=== PATIENT | male | born 1985 | race Caucasian/White ===

== ENCOUNTER 2017-06-07 09:20 | Emergency (ER) | payer MEDICAID ==
[~2017-06-07] VITALS: Ht 170.2 cm; Wt 77.1 kg
--- NOTE | 2017-06-07 09:45 | NUR ---
Flu swab collected and sent to lab.
[2017-06-07 11:22] VITALS: BP 112/68
--- NOTE | 2017-06-07 11:22 | NUR ---
Patient discharged to home in stable conditon. Written and verbal after care instructions given. Patient verbalizes understanding of instructions.
== END 2017-06-07 11:23 | disposition home or self-care (01) ==
LOC: ER 09:20
DX: J20.9 Acute bronchitis, unspecified (principal)
CPT/HCPCS: 71045; 87400; A4663

== ENCOUNTER 2017-06-10 18:37 | Inpatient (IN) | payer MEDICAID ==
[~2017-06-10] VITALS: Ht 170.2 cm; Wt 80.7 kg
[2017-06-10] MEDS ORDERED: GUAI120L24 PO (18:53)
[2017-06-10] MEDS ORDERED: AZIT250T13 PO (18:53)
--- NOTE | 2017-06-10 19:10 | NUR ---
PATIENT WAS SEEN AND EXAMINED BY DR CINTRON IN ROOM 03A. FAMILY AT BEDSIDE. PATIENT A & O X4.
[2017-06-10] MEDS ORDERED: IBUPROFEN 600 MG TABLET PO ONE (19:30)
[2017-06-10] MEDS ORDERED: IV NORMAL SALINE 1000 ML BAG IV ONE (19:30)
[2017-06-10] MEDS ORDERED: ALBUTEROL SULFATE 2.5 MG/3 ML NEBU NEB ONE ×2 (19:30→21:15)
--- NOTE | 2017-06-10 19:35 | NUR ---
PATIENT WAS MOVED TO ROOM 04A FOR MONITOR PLACEMENT.
[2017-06-10] MEDS ORDERED: ALBUTEROL SULFATE 2.5 MG/3 ML NEBU ONE ×2 (19:42→21:36)
--- NOTE | 2017-06-10 19:42 | NUR ---
PT IN BED RECEIVING BREATHING TX. VISITOR AT BEDSIDE. PT JUST GOT CHEST XRAY.
--- NOTE | 2017-06-10 19:50 | NUR ---
PATIENT PLACE BACK ON NC O2 AT 2L/MIN.
[2017-06-10 19:53] LABS: BASOPHILS # (AUTO) 0.1 K/uL (0.0-8.0); BASOPHILS % (AUTO) 0.5 % (0.0-2.0); EOSINOPHILS # (AUTO) 1.2 K/uL (0.0-0.7); EOSINOPHILS % (AUTO) 11.6 % (0.0-7.0); HEMATOCRIT 44.7 % (36.7-47.1); HEMOGLOBIN 14.7 g/dL (12.5-16.3); LYMPHOCYTES # (AUTO) 3.1 K/uL (20.0-40.0); MEAN CORPUSCULAR HEMOGLOBIN 25.6 uug (23.8-33.4); MEAN CORPUSCULAR HGB CONC 33 g/dL (32.5-36.3); MEAN CORPUSCULAR VOLUME 77.7 fL (73.0-96.2); MONOCYTES # (AUTO) 0.6 K/uL (2.0-10.0); MONOCYTES % (AUTO) 6.5 % (0.0-11.0); NEUTROPHILS % (AUTO) 50.4 % (38.5-71.5); PLATELET COUNT (AUTO) 282 K/uL (152-348); RED BLOOD CELL COUNT(AUTO) 5.76 MIL/uL (4.06-5.63)
[2017-06-10 19:58] LABS: POTASSIUM 3.8 mmol/L (3.5-5.1)
--- NOTE | 2017-06-10 19:59 | NUR ---
O2 INCREASE TO 3 L/MIN NC.
[2017-06-10 20:04] LABS: BILIRUBIN,DIRECT 0.1 mg/dL (0.0-0.2); BILIRUBIN,TOTAL 0.3 mg/dL (0.2-1.0); TOTAL PROTEIN, SERUM 7.4 g/dL (6.4-8.2)
[2017-06-10] MEDS ORDERED: IBUPROFEN 600 MG TABLET ONE (20:07)
[2017-06-10] MEDS ORDERED: HYDROCODONE BIT/HOMATROPINE 5 ML UDC PO ONE (21:15)
[2017-06-10] MEDS ORDERED: BENZONATATE 100 MG CAPSULE PO ONE (21:15)
[2017-06-10] MEDS ORDERED: BENZONATATE 100 MG CAPSULE ONE (21:53)
[2017-06-10] MEDS ORDERED: HYDROCODONE BIT/HOMATROPINE 5 ML UDC ONE (21:53)
--- NOTE | 2017-06-10 22:12 | NUR ---
PT IN BED. FAMILY AT BEDSIDE. PT IS A&OX4. VSS. PT RECEIVING BREATHING TX. NO SIGNS OF DISTRESS WITNESSED.
[2017-06-10] MEDS ORDERED: CEFTRIAXONE 1 G in IV DEXTROSE 5% 50 ML IV ONE (23:45)
--- NOTE | 2017-06-11 00:30 | NUR ---
MD CINTRON TALKING TO TORI KIRAN ABOUT PT ADMISSION
[2017-06-11] MEDS ORDERED: MAGNESIUM HYDROXIDE 30 ML LIQUID UDC PO PRN (00:45)
[2017-06-11] MEDS ORDERED: ONDANSETRON 4 MG/2 ML VIAL IV PRN (00:45)
[2017-06-11] MEDS ORDERED: CEFTRIAXONE 1 G VIAL ONE (01:01)
--- NOTE | 2017-06-11 02:09 | NUR ---
PT ENDORSED TO [facility], 2ND FLOOR MED SURG/TELE
[2017-06-11] MEDS ORDERED: ALBUTEROL SULFATE 2.5 MG/3 ML NEBU NEB ONE (03:00)
[2017-06-11] MEDS ORDERED: diphenhydrAMINE 50 MG/1 ML VIAL IV ONE (03:00)
[2017-06-11] MEDS ORDERED: ALBUTEROL SULFATE 2.5 MG/3 ML NEBU ONE (03:19)
--- NOTE | 2017-06-11 03:30 | NUR ---
PT RECEIVED FROM ED, VIA WHEELCHAIR. AT BEDSIDE. FRENCH SPEAKING, BUT ABLE TO MAKE NEEDS KNOWN. ORIENTED TO ROOM. A/OX4. V/S STABLE. IN NO ACUTE DISTRESS. 66 SINUS RHYTHM ON THE TELE MONITOR. PT C/O OF HEADACHE 12/08 AT THIS TIME. IV INTACT AND PATENT. PT PLACED ON 3LNC DUE TO C/O OF SOB. HOB ELEVATED. O2 SATURATION SEEN AT 97%. SAFETY MEASURES IMPLEMENTED. CALL LIGHT WITHIN REACH.
--- NOTE | 2017-06-11 03:37 | NUR ---
PT TAKEN TO 2ND FLOOR--#204
[2017-06-11 04:00] VITALS: BP 113/71
[2017-06-11] MEDS: IV NS 1000 ML 1,000 ML IV SCH ×2 (04:00→15:46)
[2017-06-11] MEDS: HYDROCODONE/APAP 5-325MG TABLET PO PRN ×2 (04:00→16:57)
[2017-06-11] MEDS: methylPREDNISolone SOD SUCC 40 MG/ML VIAL IV SCH ×2 (05:35→14:26)
[2017-06-11] MEDS ORDERED: methylPREDNISolone SOD SUCC 40 MG/ML VIAL IV ONE (06:00)
--- NOTE | 2017-06-11 06:30 | NUR ---
[facility]- END OF SHIFT NOTES. PT IN STABLE CONDITION. 70 SINUS RHYTHM ON THE TELE MONITOR. IVF INFUSING. PT C/O OF HEADACHE CEASED. AFEBRILE. CONT ON 3LNC, TOLERATING WELL. HOB REMAINS ELEVATED. ALL NEEDS ATTENDED. SAFETY MAINTAINED. CALL LIGHT WITHIN REACH.
[2017-06-11 06:39] LABS: EOSINOPHILS # (AUTO) 1.1 K/uL (0.0-0.7); MONOCYTES # (AUTO) 0.4 K/uL (2.0-10.0)
[2017-06-11 06:41] LABS: CREATININE 0.9 mg/dL (0.6-1.3); POTASSIUM 3.9 mmol/L (3.5-5.1)
[2017-06-11 06:46] LABS: BASOPHILS % (AUTO) 0.5 % (0.0-2.0); EOSINOPHILS % (AUTO) 15.9 % (0.0-7.0); HEMATOCRIT 41.9 % (36.7-47.1); HEMOGLOBIN 14.4 g/dL (12.5-16.3); LYMPHOCYTES # (AUTO) 2.4 K/uL (20.0-40.0); LYMPHOCYTES % (AUTO) 34.6 % (20.5-51.5); MEAN CORPUSCULAR HGB CONC 35 g/dL (32.5-36.3); MEAN CORPUSCULAR VOLUME 78.2 fL (73.0-96.2); PLATELET COUNT (AUTO) 230 K/uL (152-348); RED BLOOD CELL COUNT(AUTO) 5.36 MIL/uL (4.06-5.63)
[2017-06-11 06:47] LABS: WHITE BLOOD COUNT (AUTO) 6.9 K/uL (3.6-10.2)
[2017-06-11] MEDS: ENOXAPARIN SODIUM 40 MG/0.4 ML DISP.SYRIN SQ SCH (08:21)
[2017-06-11] MEDS ORDERED: ENOXAPARIN SODIUM 40 MG/0.4 ML DISP.SYRIN SQ ONE (09:00)
[2017-06-11 11:22] VITALS: BP 97/64
[2017-06-11 15:32] VITALS: BP 108/65
--- NOTE | 2017-06-11 15:45 | NUR ---
PT REQUESTING BREATHING TREATMENT, SAT 95% ON 2LNC
[2017-06-11] MEDS: ALBUTEROL SULFATE 2.5 MG/ 0.5 ML NEBU NEB PRN ×2 (16:00→23:09)
[2017-06-11] MEDS: IPRATROPIUM BROMIDE 0.5 MG/2.5 ML NEBU NEB PRN ×2 (16:00→23:09)
[2017-06-11] MEDS: IPRATROPIUM BROMIDE 0.5 MG/2.5 ML NEBU NEB SCH (19:21)
[2017-06-11] MEDS: ALBUTEROL SULFATE 1.25 MG/3 ML NEBU NEB SCH (19:21)
--- NOTE | 2017-06-11 19:30 | NUR ---
PT RECEIVED IN BED, AWAKE. FAMILY AT BEDSIDE. A/OX4. ABLE TO MAKE NEEDS KNOWN. V/S STABLE. IN NO ACUTE DISTRESS. PT C/O HEADACHE AT THIS TIME, UNRELIEVED BY NORCO. IVF INFUSING. ON 2L NC, TOLERATING WELL. PT ENCOURAGED TO COUGH AND DEEP BREATH. AFEBRILE. SAFETY MEASURES IMPLEMENTED. CALL LIGHT WITHIN REACH.
--- NOTE | 2017-06-11 19:35 | NUR ---
PT SINUS RHYTHM 78 BPM ON THE TELE MONITOR.
[2017-06-11 20:00] VITALS: BP 105/65
[2017-06-11] MEDS ORDERED: CEFTRIAXONE 1 G in IV DEXTROSE 5% 50 ML IV SCH (20:00)
--- NOTE | 2017-06-11 20:26 | NUR ---
TYLENOL 650MG PO GIVEN FOR TEMP. 103. COOLING MEASURES CONTINUED. Addendum: 06/11/17 at 2256 by LOTUS GREEN RN DISREGARD NOTE, WRONG PT
[2017-06-11] MEDS: CEFTRIAXONE 1 G in IV NORMAL SALINE 50 ML IV SCH (20:47)
[2017-06-11] MEDS: ACETAMINOPHEN 325 MG TABLET PO PRN (20:47)
[2017-06-11] MEDS: methylPREDNISolone SOD SUCC 125 MG/2 ML VIAL IV SCH (21:30)
[2017-06-11] MEDS: ZOLPIDEM 5 MG TABLET PO PRN (21:33)
--- NOTE | 2017-06-11 21:35 | NUR ---
PER GROUP TESTER ORDER, PT ENCOURAGED TO USE INCENTIVE SPIROMETER FOR DEEP BREATHING EXERCISE. PT ALSO ENCOURAGED TO WALK AD KILO. PT C/O DIFFICULTY SLEEPING. GROUP TESTER QIANA AWARE. ZOLPIDEM PROVIDED. WILL CONT TO MONITOR
[2017-06-11] MEDS ORDERED: methylPREDNISolone SOD SUCC 40 MG/ML VIAL IV SCH (22:00)
[2017-06-11] MEDS: ACETYLCYSTEINE 10% 4ML VIAL NEB SCH (23:10)
[2017-06-12 00:07] VITALS: BP 115/54
[2017-06-12 04:00] VITALS: BP 115/67
[2017-06-12] MEDS: methylPREDNISolone SOD SUCC 125 MG/2 ML VIAL IV SCH ×3 (05:52→21:20)
[2017-06-12] MEDS: IV NS 1000 ML 1,000 ML IV SCH ×2 (05:52→19:45)
--- NOTE | 2017-06-12 06:00 | NUR ---
END OF SHIFT NOTES. PT SLEPT WELL THROUGHOUT SHIFT. IN STABLE CONDITION. 69 SINUS RHYTHM ON THE TELE MONITOR. HEADACHE CEASED. IVF INFUSING. CONT ON 2L NC TOLERATING WELL. AFEBRILE. CONT TO ENCOURAGE PT WITH USE OF INCENTIVE SPIROMETER. PT COMPLIANT WITH CARE. ALL NEEDS ATTENDED. SAFETY MAINTAINED. CALL LIGHT WITHIN REACH.
[2017-06-12 06:49] LABS: CREATININE 0.8 mg/dL (0.6-1.3); MAGNESIUM 2.1 mg/dL (1.8-2.4); PHOSPHOROUS 4.2 mg/dL (2.5-4.9); POTASSIUM 4.5 mmol/L (3.5-5.1)
[2017-06-12 06:52] LABS: BASOPHILS % (AUTO) 0.1 % (0.0-2.0); HEMATOCRIT 43.9 % (36.7-47.1); HEMOGLOBIN 14.4 g/dL (12.5-16.3); LYMPHOCYTES # (AUTO) 1.4 K/uL (20.0-40.0); LYMPHOCYTES % (AUTO) 10.7 % (20.5-51.5); MEAN CORPUSCULAR HEMOGLOBIN 25.9 uug (23.8-33.4); MEAN CORPUSCULAR HGB CONC 33 g/dL (32.5-36.3); MEAN CORPUSCULAR VOLUME 79.2 fL (73.0-96.2); MONOCYTES # (AUTO) 0.2 K/uL (2.0-10.0); MONOCYTES % (AUTO) 1.4 % (0.0-11.0); NEUTROPHILS # (AUTO) 11.9 K/uL (1.8-8.9); NEUTROPHILS % (AUTO) 87.8 % (38.5-71.5); PLATELET COUNT (AUTO) 283 K/uL (152-348); RED BLOOD CELL COUNT(AUTO) 5.54 MIL/uL (4.06-5.63); WHITE BLOOD COUNT (AUTO) 13.5 K/uL (3.6-10.2)
[2017-06-12] MEDS: ACETYLCYSTEINE 10% 4ML VIAL NEB SCH ×3 (07:32→19:28)
[2017-06-12] MEDS: ALBUTEROL SULFATE 1.25 MG/3 ML NEBU NEB SCH ×3 (07:32→19:30)
[2017-06-12] MEDS: IPRATROPIUM BROMIDE 0.5 MG/2.5 ML NEBU NEB SCH ×3 (07:33→19:30)
--- NOTE | 2017-06-12 07:45 | NUR ---
PATIENT IS AWAKE ALERT AND ORIENTED DENIES PAIN OR DISCOMFORTS AT THIS TRIME REMAIN ON IVF ORDERED.ON O2 WITH NO SHORTNESS OF BREATH WILL CHECK SATS ON ROOM AIR WITH EXERCISES.NOT IN DISTRESS AT THIS TIME.
[2017-06-12] MEDS: ENOXAPARIN SODIUM 40 MG/0.4 ML DISP.SYRIN SQ SCH (08:34)
[2017-06-12] MEDS: LEVOFLOXACIN 750MG/D5W 750 MG in PREMIXED 1 EACH IV SCH (11:05)
[2017-06-12 11:21] VITALS: BP 121/68
[2017-06-12] MEDS ORDERED: BENZOCAINE/MENTH/CETYLPYRD LOZENGE MM PRN (11:30)
[2017-06-12] MEDS: BENZONATATE 100 MG CAPSULE PO SCH ×3 (11:50→21:20)
--- NOTE | 2017-06-12 13:56 | NUR ---
HERMELINDO PAREDES WAS GIVEN 2 HOURS AGO AND THE ORDER IS Q8H
[2017-06-12] MEDS: ACETAMINOPHEN 325 MG TABLET PO PRN (14:45)
[2017-06-12 15:29] VITALS: BP 110/64
--- NOTE | 2017-06-12 18:00 | NUR ---
AMBULATIORY IN THE HALLWAY WITH [facility] PATIENT SEEN SO MANY TIMES WITHOUT O2 AND HIS SATURATION DEEPS DOWN TO 88 ENCOURAGED TO USE HIS INCENTIVE SPIROMETER INSTRUCTED AND LEAVE HIS O2 ON AND HE EXPRESSED UNDERSTANDING.
[2017-06-12] MEDS: ALBUTEROL SULFATE 2.5 MG/ 0.5 ML NEBU NEB PRN (19:28)
[2017-06-12] MEDS: IPRATROPIUM BROMIDE 0.5 MG/2.5 ML NEBU NEB PRN (19:28)
[2017-06-12] MEDS: CEFTRIAXONE 1 G in IV NORMAL SALINE 50 ML IV SCH (19:45)
[2017-06-12 19:49] VITALS: BP 119/67
--- NOTE | 2017-06-12 19:49 | NUR ---
Round the clock resp neb tx has been administered.
--- NOTE | 2017-06-12 20:40 | NUR ---
RECEIVED PATIENT IN BED ALERT ORIENTED, NO SOB NO CHEST PAIN, RYTHM SINUS RYTHM AT THIS TIME. PATIENT WORKS AROUND THE ROOM, USES INCENTIVE INSPIROMETER WHILE AWAKE, COMPLAIN OF MILD HEADACHE, CONT TO MONITOR.
[2017-06-12] MEDS: HYDROCODONE/APAP 5-325MG TABLET PO PRN (21:20)
[2017-06-12] MEDS: ZOLPIDEM 5 MG TABLET PO PRN (23:02)
[2017-06-13 00:33] VITALS: BP 112/58
[2017-06-13 04:48] VITALS: BP 106/68
[2017-06-13 05:49] LABS: BASOPHILS % (AUTO) 0.1 % (0.0-2.0); HEMATOCRIT 42.4 % (36.7-47.1); HEMOGLOBIN 13.6 g/dL (12.5-16.3); LYMPHOCYTES # (AUTO) 1.4 K/uL (20.0-40.0); LYMPHOCYTES % (AUTO) 8.1 % (20.5-51.5); MEAN CORPUSCULAR HEMOGLOBIN 25.5 uug (23.8-33.4); MEAN CORPUSCULAR HGB CONC 32 g/dL (32.5-36.3); MEAN CORPUSCULAR VOLUME 79.3 fL (73.0-96.2); MONOCYTES # (AUTO) 0.4 K/uL (2.0-10.0); MONOCYTES % (AUTO) 2.5 % (0.0-11.0); NEUTROPHILS # (AUTO) 15.8 K/uL (1.8-8.9); NEUTROPHILS % (AUTO) 89.3 % (38.5-71.5); PLATELET COUNT (AUTO) 295 K/uL (152-348); RED BLOOD CELL COUNT(AUTO) 5.35 MIL/uL (4.06-5.63); WHITE BLOOD COUNT (AUTO) 17.7 K/uL (3.6-10.2)
[2017-06-13 06:00] LABS: CREATININE 0.9 mg/dL (0.6-1.3); MAGNESIUM 2.2 mg/dL (1.8-2.4); PHOSPHOROUS 4.6 mg/dL (2.5-4.9); POTASSIUM 4.2 mmol/L (3.5-5.1)
[2017-06-13] MEDS: BENZONATATE 100 MG CAPSULE PO SCH ×3 (06:07→21:23)
[2017-06-13] MEDS: methylPREDNISolone SOD SUCC 125 MG/2 ML VIAL IV SCH (06:07)
[2017-06-13] MEDS: ACETYLCYSTEINE 10% 4ML VIAL NEB SCH ×3 (07:27→22:53)
[2017-06-13] MEDS: ALBUTEROL SULFATE 1.25 MG/3 ML NEBU NEB SCH (07:27)
[2017-06-13] MEDS: IPRATROPIUM BROMIDE 0.5 MG/2.5 ML NEBU NEB SCH ×6 (07:27→22:53)
--- NOTE | 2017-06-13 07:30 | NUR ---
PATIENT IN BED AWAKE ALERT AND ORIENTED WITH O2 AT 3L/M BY NASAL CANULLA NO SHORTNESS OF BREATH AT THIS TIME.REMAIN ON IVF AND IV ANTIBIOTICS ORDERED WITH NO S/S OF INFILTERATION OR ADVERSE EFFECTS AT THIS TIME.MADE COMFORTABLE AND WILL CONTINUE TO OBSERVE.
[2017-06-13] MEDS: IV NS 1000 ML 1,000 ML IV SCH (08:59)
[2017-06-13] MEDS: HYDROCODONE/APAP 5-325MG TABLET PO PRN (08:59)
[2017-06-13] MEDS: ENOXAPARIN SODIUM 40 MG/0.4 ML DISP.SYRIN SQ SCH (09:05)
--- NOTE | 2017-06-13 09:19 | NUR ---
DR FOY HERE AND SEEN PATIENT AND STATED TO DISCONTINUE THE O2 AND TO AMBULATE PATIENT WITHOUT THE O2 PATIENT JUST RECEIVED NORCO STATED NOT UP TO WALKING AT THE MOMENT WILL LET HIM REST FOR NOW AND WILL ASSIST WITH AMBULATION AND WILL THE CHECK THE SATURATION ON ROOM AIR AFTER THE WALKING.NOTED WITH OCCASSIONAL COUGH EPISODES
[2017-06-13] MEDS: LEVOFLOXACIN 750MG/D5W 750 MG in PREMIXED 1 EACH IV SCH (10:51)
[2017-06-13 11:28] VITALS: BP 119/74
--- NOTE | 2017-06-13 11:30 | NUR ---
PATIENT CALLED THE NURSES STATION AND STATED THAT HE IS HAVING SHORTNESS OF BREATH UPON ENTERING THE ROOM PATIENT IS ON ROOM AIR WITH HIS SATURATION AT 87% AND IS HAVING OBVIOUS DIFFICULTY BREATHING RESTARTED ON O2 AT 2L/M BUT SATS IS STILL LOW AT 88%, O2 INCREASED TO 3 THEN TO 4L/M BUT SATS REMAIN AT 88 SO RESPIRATORY THERAPY CALLED FOR BREATHING TREATMENT AND TO ADJUST THE O2.
[2017-06-13] MEDS: ALBUTEROL SULFATE 2.5 MG/ 0.5 ML NEBU NEB PRN ×3 (11:52→11:54)
[2017-06-13] MEDS: IPRATROPIUM BROMIDE 0.5 MG/2.5 ML NEBU NEB PRN (11:54)
--- NOTE | 2017-06-13 11:58 | NUR ---
DR FOY NOTIFIED RE PATIENT IS HAVING DIFFICULTY BREATHING AND THE O2 WAS RESTARTED AND NEEDING HAND HELD NEBULIZER AND HE STATED TO PUT THE ORDER ROUTINE TO ENSURE THAT HE IS GETTING IT TIMELY AND NOTED RESPIRATORY THERAPIST NOTIFIED.
[2017-06-13] MEDS: ALBUTEROL SULFATE 2.5 MG/3 ML NEBU NEB SCH ×4 (12:00→22:53)
--- NOTE | 2017-06-13 12:04 | NUR ---
PRN ALBUTEROL AND ATROVENT TX GIVEN VIA HHN.
--- NOTE | 2017-06-13 12:40 | NUR ---
O2 SAT IS NOW AT 93% WITH O2 AT 3.5L/M WILL CONTINUE TO OBSERVE DR FRANKLIN HERE AND WAS NOTIFIED THAT PATIENT WAS HAVING DIFFICULTY BREATHING STATED WILL SEE PATIENT.
--- NOTE | 2017-06-13 13:24 | NUR ---
PATIENT SEEN AND EXAMINED BY DR FRANKLIN WITH NEW ORDERS AND NOTED.
--- NOTE | 2017-06-13 15:13 | NUR ---
PATIENT TAKEN TO THE RADIOLOGY DEPARTMENT AND CAT SCAN OF THE SINUS COMPLETED ORDERED AND BACK TO HIS ROOM WITH NO C/O AT THIS TIME.
[2017-06-13 15:19] VITALS: BP 113/68
[2017-06-13] MEDS: ACETAMINOPHEN 325 MG TABLET PO PRN (16:07)
--- NOTE | 2017-06-13 16:15 | NUR ---
PATIENT C/O HEADACHE MEDICATED WITH TYLENOL ORDERED OFFERED TO GIVE HIM NORCO BECAUSE HE STATED THAT NORCO HELPS HIM BETTER BUT HIS AT THE BEDSIDE WAS INSISTENT FOR PATIENT TO NOT TAKE NORCO.
--- NOTE | 2017-06-13 17:27 | NUR ---
AMBULATORY IN THE HALLWAY AT THIS TIME WITH SLOW STEADY GAIT WITH NO OBVIOUS SHORTNESS OF BREATH.WILL CONTINUE TO OBSERVE.
--- NOTE | 2017-06-13 19:20 | NUR ---
Received pt awake on bed alert and oriented x 4. at bedside. Pt iv intact and patent. Pt is coughing. Call light within reach . Bed in low position. Advised that we need sputum culture from the pt. Pt is aware. will continue to monitor.
[2017-06-13 20:00] VITALS: BP 109/66
[2017-06-13] MEDS ORDERED: methylPREDNISolone SOD SUCC 125 MG/2 ML VIAL IV SCH (21:00)
[2017-06-13] MEDS: methylPREDNISolone SOD SUCC 40 MG/ML VIAL IV SCH (21:20)
[2017-06-14] MEDS: ALBUTEROL SULFATE 2.5 MG/3 ML NEBU NEB SCH ×6 (03:30→22:33)
[2017-06-14] MEDS: IPRATROPIUM BROMIDE 0.5 MG/2.5 ML NEBU NEB SCH ×6 (03:30→22:34)
[2017-06-14 04:45] VITALS: BP 105/55
[2017-06-14] MEDS: BENZONATATE 100 MG CAPSULE PO SCH ×3 (05:45→21:26)
--- NOTE | 2017-06-14 06:17 | NUR ---
Pt slept throughout the shift. Pt shows no signs of RESPIRATORY distress. Pt iv intact and patent. Prescribed medications given to the pt. Pt tolerated it well. Safety and comfort provided.
[2017-06-14] MEDS: ACETYLCYSTEINE 10% 4ML VIAL NEB SCH ×2 (07:11→14:38)
[2017-06-14] MEDS: ACETAMINOPHEN 325 MG TABLET PO PRN (08:29)
[2017-06-14] MEDS: methylPREDNISolone SOD SUCC 40 MG/ML VIAL IV SCH ×2 (08:30→21:26)
[2017-06-14] MEDS: ENOXAPARIN SODIUM 40 MG/0.4 ML DISP.SYRIN SQ SCH (08:31)
[2017-06-14] MEDS: LEVOFLOXACIN 750MG/D5W 750 MG in PREMIXED 1 EACH IV SCH (11:20)
[2017-06-14 12:03] VITALS: BP 114/67
[2017-06-14 15:49] VITALS: BP 114/67
--- NOTE | 2017-06-14 20:00 | NUR ---
PATIENT AWAKE IN BED, HE'S ALERT AND ORIENTED X4 AND ABLE TO STATE HIS NEEDS. HE DENIES PAIN OR RESPIRATORY DISTRESS. SAFETY MEASURES IN PLACE, BED LOCKED AND IN LOW POSITION. WILL CONTINUE TO MONITOR PATIENT
[2017-06-15] MEDS: ZOLPIDEM 5 MG TABLET PO PRN (00:46)
[2017-06-15] MEDS: IPRATROPIUM BROMIDE 0.5 MG/2.5 ML NEBU NEB SCH ×4 (04:00→12:21)
[2017-06-15] MEDS: ALBUTEROL SULFATE 2.5 MG/3 ML NEBU NEB SCH ×4 (04:00→12:21)
[2017-06-15] MEDS: BENZONATATE 100 MG CAPSULE PO SCH (05:53)
--- NOTE | 2017-06-15 06:26 | NUR ---
PATIENT WITH DIFFICULTY SLEEPING DURING THE NIGHT, AMBIEN WAS GIVEN WITH EFFECT. NO C/O PAIN OR RESP DISTRESS ON THIS SHIFT. ALL NEEDS MET
--- NOTE | 2017-06-15 07:00 | NUR ---
RECEIVED PATIENT ON BED AWAKE A AND O X 4 NO ACUTE DISTRESS NOTED. NON PRODUCTIVE COUGH PRESENT, BUT ABLE TO OBTAIN SPECIMEN FOR SPUTUM CULTURE. RESPIRATIONS ARE NORMAL DESPITE COUGH, O2 SAT RANGES FROM 95-96%. WITH HEPLOCK ON THE LEFT AC #22 INTACT AND PATENT. NO S/S OF INFILTRATION NOTED. ALL COMFORT MEASURES PROVIDED, CALL LIGHT WITHIN REACH WILL CONTINUE TO MONITOR CLOSELY.
[2017-06-15] MEDS: methylPREDNISolone SOD SUCC 40 MG/ML VIAL IV SCH (08:35)
[2017-06-15] MEDS: ENOXAPARIN SODIUM 40 MG/0.4 ML DISP.SYRIN SQ SCH (08:36)
[2017-06-15] MEDS: LEVOFLOXACIN 750MG/D5W 750 MG in PREMIXED 1 EACH IV SCH (10:17)
[2017-06-15 11:02] VITALS: BP 115/76
--- NOTE | 2017-06-15 12:15 | NUR ---
PATIENT DISCHARGED IN STABLE CONDITION, DISCHARGE INSTRUCTIONS AND PAPERS EXPLAINED AND GIVEN TO PATIENT. PHARMACIST EXPLAINED MEDICATION PRESCRIPTIONS TO PATIENT, HE VERBALIZED UNDERSTANDING ABOUT ALL HEALTH EDUCATION. PATIENT LEFT HOSPITAL ACCOMPANIED BY VIA PRIVATE CAR.
== END 2017-06-15 12:10 | disposition home or self-care (01) | DRG 137 ==
LOC: ER 18:38 → TELE 06-11 03:09 → MED 06-13 10:10
PROVIDERS: ADMIT Nurse Practitioner Acute Care; ATTEND Nurse Practitioner Acute Care
DX: J15.6 Pneumonia due to other Gram-negative bacteria (principal); J96.01 Acute respiratory failure with hypoxia; D72.829 Elevated white blood cell count, unspecified; T38.0X5A Adverse effect of glucocorticoids and synthetic analogues, initial encounter; Y92.239 Unspecified place in hospital as the place of occurrence of the external cause; Z91.09 Other allergy status, other than to drugs and biological substances; J45.909 Unspecified asthma, uncomplicated; J20.9 Acute bronchitis, unspecified
CPT/HCPCS: 36415; 70486; 71045; 71270; 82785; 83605; 83735; 84100; 85025; 87040; 87400; 87806; 94640; A4663; J0696; J1650; J1956; J2920; J2930; J3490; J3590; J7030; J7060

== ENCOUNTER 2018-04-25 19:49 | Emergency (ER) | END 2018-04-26 02:08 | disposition home or self-care (01) | DX: S62.002A Unspecified fracture of navicular [scaphoid] bone of left wrist, initial encounter for closed fracture (principal); W11.XXXA Fall on and from ladder, initial encounter; Y93.89 Activity, other specified; Y92.89 Other specified places as the place of occurrence of the external cause; Y99.8 Other external cause status ==

== ENCOUNTER 2018-04-28 04:44 | Emergency (ER) | END 2018-04-28 05:45 | disposition home or self-care (01) | DX: S63.112A Subluxation of metacarpophalangeal joint of left thumb, initial encounter (principal); X58.XXXA Exposure to other specified factors, initial encounter; Y93.89 Activity, other specified; Y92.89 Other specified places as the place of occurrence of the external cause; Y99.8 Other external cause status ==

== ENCOUNTER 2021-06-13 00:08 | Emergency (ER) | payer MEDICAID ==
[~2021-06-13] VITALS: Ht 170.2 cm; Wt 79.4 kg
--- NOTE | 2021-06-13 00:35 | NUR ---
Dr Adal Miles at bedside for MSE.
[2021-06-13] MEDS ORDERED: IPRATROPIUM BROMIDE 0.5 MG/2.5 ML NEBU NEB ONE (00:45)
[2021-06-13] MEDS ORDERED: predniSONE 10 MG TABLET PO ONE (00:45)
[2021-06-13] MEDS ORDERED: ALBUTEROL SULFATE 2.5 MG/3 ML NEBU NEB ONE (00:45)
[2021-06-13] MEDS ORDERED: MAG HYDROX/AL HYDROX/SIMETH 30 ML LIQUID UDC PO ONE (00:45)
[2021-06-13] MEDS ORDERED: MAG HYDROX/AL HYDROX/SIMETH 30 ML LIQUID UDC ONE (00:54)
[2021-06-13] MEDS ORDERED: predniSONE 10 MG TABLET ONE (00:55)
[2021-06-13] MEDS ORDERED: predniSONE 50 MG TABLET ONE (00:55)
[2021-06-13 00:56] LABS: CREATININE 1.2 mg/dL (0.6-1.3)
[2021-06-13 00:59] LABS: HEMATOCRIT 47.9 % (36.7-47.1); MEAN CORPUSCULAR HEMOGLOBIN 26.9 uug (23.8-33.4); MEAN CORPUSCULAR VOLUME 82.6 fL (73.0-96.2); PLATELET COUNT (AUTO) 209 K/uL (152-348)
[2021-06-13] MEDS ORDERED: ALBUTEROL SULFATE 2.5 MG/3 ML NEBU ONE (01:00)
[2021-06-13] MEDS ORDERED: IPRATROPIUM BROMIDE 0.5 MG/2.5 ML NEBU ONE (01:01)
[2021-06-13] MEDS ORDERED: ALBU18HF2 INH (01:54)
[2021-06-13] MEDS ORDERED: PRED50TA PO (01:54)
[2021-06-13] MEDS ORDERED: FLUT1DIS28 INH (01:54)
[2021-06-13 02:32] VITALS: BP 121/75
== END 2021-06-13 02:34 | disposition home or self-care (01) ==
LOC: ER 00:08
DX: J45.902 Unspecified asthma with status asthmaticus (principal); Z87.01 Personal history of pneumonia (recurrent)
CPT/HCPCS: 36415; 80048; 83735; 85025; 94644; 99285; J7512 ×2; A4663; J3590

== ENCOUNTER 2023-02-21 17:08 | Emergency (ER) | payer MEDICAID ==
[~2023-02-21] VITALS: Ht 170.2 cm; Wt 77.1 kg
[~2023-02-21 17:08] MED LIST: ALBU18HF2 INH; FLUT1DIS28 INH; PRED50TA PO
[2023-02-21] MEDS ORDERED: IV NORMAL SALINE 1000 ML BAG IV ONE (17:30)
[2023-02-21] MEDS ORDERED: METOCLOPRAMIDE HCL 10 MG/2 ML VIAL IV ONE (17:30)
[2023-02-21] MEDS ORDERED: diphenhydrAMINE 50 MG/1 ML VIAL IVP ONE (17:30)
[2023-02-21] MEDS ORDERED: ACETAMINOPHEN ES 500 MG TABLET PO ONE (17:30)
[2023-02-21] MEDS ORDERED: ACETAMINOPHEN ES 500 MG TABLET ONE (17:31)
[2023-02-21] MEDS ORDERED: METOCLOPRAMIDE HCL 10 MG/2 ML VIAL ONE (17:31)
[2023-02-21] MEDS ORDERED: diphenhydrAMINE 50 MG/1 ML VIAL ONE (17:31)
[2023-02-21] MEDS ORDERED: IBUP-1955 PO (18:35)
[2023-02-21 19:13] VITALS: BP 118/77; O2SAT 99
== END 2023-02-21 19:13 | disposition home or self-care (01) ==
LOC: ER 17:10
DX: S06.0X0A Concussion without loss of consciousness, initial encounter (principal); S05.11XA Contusion of eyeball and orbital tissues, right eye, initial encounter; Z79.899 Other long term (current) drug therapy; Y04.2XXA Assault by strike against or bumped into by another person, initial encounter; Y93.89 Activity, other specified; Y92.89 Other specified places as the place of occurrence of the external cause; Y99.8 Other external cause status
CPT/HCPCS: 99285; 96374; 70450; 96361; 96375; J1200; J2765; J7040; A4606; A4663; A9150

== ENCOUNTER 2023-10-04 13:06 | Emergency (ER) | payer MEDICAID, OTHER ==
[~2023-10-04] VITALS: Ht 170.2 cm; Wt 86.2 kg
[~2023-10-04 13:06] MED LIST changes: +IBUP-1955 PO
[2023-10-04] MEDS ORDERED: ASPIRIN 81 MG TAB.CHEW ONE (13:39)
[2023-10-04 13:43] LABS: BASOPHILS # (AUTO) 0.2 K/UL (0.0-0.2); EOSINOPHILS # (AUTO) 0.1 K/uL (0.0-0.7); EOSINOPHILS % (AUTO) 2.2 % (0.0-7.0); HEMATOCRIT 43.1 % (36.7-47.1); HEMOGLOBIN 13.9 g/dL (12.5-16.3); LYMPHOCYTES # (AUTO) 2.5 K/uL (0.8-4.8); LYMPHOCYTES % (AUTO) 38.2 % (20.5-51.5); MEAN CORPUSCULAR HEMOGLOBIN 25.4 uug (23.8-33.4); MEAN CORPUSCULAR HGB CONC 32 g/dL (32.5-36.3); MEAN CORPUSCULAR VOLUME 78.9 fL (73.0-96.2); MONOCYTES # (AUTO) 0.3 K/uL (0.1-1.30); MONOCYTES % (AUTO) 4.4 % (0.0-11.0); NEUTROPHILS # (AUTO) 3.3 K/uL (1.8-8.9); NEUTROPHILS % (AUTO) 52.2 % (38.5-71.5); PLATELET COUNT (AUTO) 258 K/uL (152-348); RED BLOOD CELL COUNT(AUTO) 5.46 MIL/uL (4.06-5.63); RED CELL DISTRIBUTION WIDTH 13.5 % (12.1-16.2); WHITE BLOOD COUNT (AUTO) 6.4 K/uL (3.6-10.2)
[2023-10-04] MEDS: ASPIRIN 81 MG TAB.CHEW PO ONE (13:45)
[2023-10-04 14:00] LABS: CALCIUM 8.9 mg/dL (8.5-10.1); CARBON DIOXIDE 25 mmol/L (21-32); CHLORIDE 102 mmol/L (98-107); CREATININE 0.9 mg/dL (0.6-1.3); GLUCOSE 109 mg/dL (74-106); POTASSIUM 3.7 mmol/L (3.5-5.1); SODIUM SERUM 135 mmol/L (136-145); UREA NITROGEN, BLOOD 14 mg/dL (7-18)
[2023-10-04 14:51] LABS: DIFFERENTIAL COMMENT 1
[2023-10-04] MEDS ORDERED: IBUPROFEN 600 MG TABLET ONE (15:30)
[2023-10-04] MEDS: IBUPROFEN 600 MG TABLET PO ONE (15:33)
[2023-10-04] MEDS ORDERED: IBUP-1955 PO (18:15)
[2023-10-04 18:34] VITALS: BP 128/77; TEMP 98.3; O2SAT 97
== END 2023-10-04 18:35 | disposition home or self-care (01) ==
LOC: ER 13:06
DX: R07.89 Other chest pain (principal); Z79.1 Long term (current) use of non-steroidal anti-inflammatories (NSAID); Z79.899 Other long term (current) drug therapy
CPT/HCPCS: 36415; 71045; 83735; 84484; 85025; 93005; A4606; A4663